=== PATIENT | female | born 1985 | race Caucasian/White ===

== ENCOUNTER → 2020-12-26 16:32 | Outpatient (CLI) | payer BC, SELFPAY ==
[2020-12-26 17:22] LABS: Hematocrit 35.6 % (37-47); Hemoglobin 11.8 g/dL (12.0-15.0); Mean Corp Hgb Conc 33.1 g/dL (32-36); Mean Corpuscular Hgb 31.1 pg (27.0-32.0); Mean Corpuscular Volume 93.7 fL (81-99); Mean Platelet Vol. 9.8 fl (6.2-12.0); Platelet Count 225 K/mm3 (150-450); RBC Distribution Width CV 12.6 % (11.6-14.6); RBC Distribution Width SD 43.2 fl (35.1-43.9); White Blood Count 8.1 K/mm3 (4.4-11.0)
[2020-12-26 17:36] LABS: Glucose Challenge Gest 1H 50g 117 mg/dL (70-140)
== END ==
PROVIDERS: Visit Provider Obstetrics & Gynecology
DX: Z34.83 Encounter for supervision of other normal pregnancy, third trimester (principal)
CPT/HCPCS: 82950; 85027

== ENCOUNTER → 2021-02-23 17:55 | Outpatient (CLI) | payer BC, SELFPAY | PROVIDERS: Referring Provider Obstetrics & Gynecology; Visit Provider Obstetrics & Gynecology | DX: Z36.85 Encounter for antenatal screening for Streptococcus B (principal) | CPT/HCPCS: 87081 ==

== ENCOUNTER 2021-03-09 00:10 | Inpatient (IN) | payer BC, SELFPAY ==
[2021-03-09] VITALS (89 sets, daily range): BP systolic 98–147; BP diastolic 48–93; PULSE 57–168; RESP 16; TEMP 36.2–36.8; O2SAT 82–100; BMI 31.6
--- NOTE | 2021-03-09 00:14 | PCM.HP.BLA ---
History and Physical Date of Admission: 03/09/21 OG ANTEPARTUM RECORD - HISTORY AND PHYSICAL (03/09/2021) Name: MONSERRAT SHUKLA History of this : This is a 35 year old [id number] presents at 38 wks + 5 days gestation in active labor. OB Physician: DARBY THOMSON MD 's Physician: UNDECIDED ...................................................................... : 1985 Age: 35 Address: [address] [place] [address] [address] [place] [id number] Phone: H) [phone] ([phone] Insurance Carrier: [employer] [id number] Emergency Contact: MARCUS BARRETT [phone] ...................................................................... Final MANNY: 03/18/21 By Ultrasound: PARITY: (G-Total Pregnancies P-Fullterm,Premature,Induced AB,Spont AB, Ectopics, Multiple,Living) MANNY CONFIRMATION: By LMP: 06/11/20 Final MANNY: 03/18/21 OB PROBLEM LIST: First del at [facility]. Lots of questions. Enc office classes. 2 vessel cord for repeat growth u/s at 36wks AMA Echogenic cardiac foci NIPT negative EPDS- 4 Hx of Anxiety- on Lexapro ALLERGIES: No Known Drug Allergies MEDICATIONS: aspirin 81 mg tablet,delayed release 1 PO QD Lexapro 10 mg tablet 1 daily + DHA 28 mg iron- 975 mcg-200 mg combo pack daily promethazine 12.5 mg tablet 1 PO every four to six hours PRN for Nausea SOCIAL HISTORY: Smoking - Smoker since age 18y. Quit Jun 2020. Alcohol Use - socially not while Diet - moderate, balanced diet Lifestyle - low stress lifestyle Exercise - Was lifting weights. Occ walking. Now none. Has treadmill. Employer - [employer] Job Description - Illicit Drug Use - denies use of street drugs Sexual Activity - Residence - Just bought their first house. Place of - [place] Spouse-Sig Other Name - Marcus Spouse-Sig Other Occupation - [employer] Spouse-Sig Other Phone No - [phone] Children Name(s) - Sandra PRIOR DELIVERY HISTORY DEL DATE GEST LAB WT LB WT OZ TYPE ANES LABOR TX 05 Jul 07 39 [phone] 7 12 Vag Epidural No ANTEPARTUM FLOW CHART VISIT RTC FU F F FL U U DATE WK MD WKS HT PN HR M SS BP ED WT FL GL D EF ST __ ____ ___ __ __ ___ __ __ __ ___ __ __ __ ___ __ Feb JM 1 37 V + + 106/78 0 181 - - 2 50 -3 03 Feb 36 JM 1 36 V + + 114/80 0 177 tr ne January JMW 1 35 + + 140/76 0 174 tr - 06 January 32 JM 2 32 - on + 114/64 0 171 ne ne Jan 20 JM 2 30 - + + 100/62 0 169 tr - 05 Jan 18 JM 2 28 - + + 118/66 sl 164 tr - 08 Dec 14 JM 4 24 - on + 126/78 0 158 08 Nov 12 JM 4 20 - on + 124/80 0 151 tr ne Oct 07 JM 4 15 - + O 112/76 0 146 - - 10 Sep 02 JM 4 11 - on 124/80 0 138 tr - ANTEPARTUM NOTE(S): Mar 03 2021: pelvic pressure, back pain, ctx's occasionally Feb 23 2021: LARC declined, GBS today Feb 09 2021: No PIH sxs. Start weekly NSTs Jan 26 2021: Jan 12 2021: doing well Dec 26 2020: see note Nov 28 2020: glucola given Oct 31 2020: US today Sep 26 2020: nausea, red/ itchy rash Sep 01 2020: feeling well COMPREHENSIVE ANTEPARTUM NOTE(S): Mar 03 2021: Monserrat is here for a PNV. good FM. No edema present at this time. Ctx's occasionally. Pelvic pressure and back pain, managing w/ maternity belt. Would like cervix checked. MK Mar 03 2021: 37wk, GBS neg. Membrane sweep today. Declined IOL at 39wks with her risk factors r/b/a discussed. Desires 40wk IOL. Mar 02 2021: H taken to OB. tkg Feb 23 2021: Monserrat is here for PNV following US. Having good FM. No edema noted today. States she is uncomfortable. LARC form declined and signed. May consider at PP visit. GBS today. Urine tr/neg. LSS Feb 23 2021: 36wk, 2 vessel cord growth u/s AGA BPP 02/28 no breathing, NST reactive 05/02. Reassuring. GBS collected today. Feb 09 2021: Monserrat is here for PNV. Having an episode of increase nausea just today. States she is dehydrated and lightheaded. BP elevated 140/76. Lying on left retake 108/60. Is sipping on water and drinking al tolerated. No edema presently. Having good FM. LSS Jan 26 2021: Monserrat is here for PNV following US. Feeling well with good FM. Wishes to have tdap and going after apt today to get this done. No problems with swelling. No complaints or concerns. Urine neg/neg. LSS Jan 26 2021: 32wk, growth u/s today for 2VC and AMA. Overal AGA, EFW 81%. Will repeat growth u/s in 4 weeks, pt anxious. Jan 12 2021: Monserrat is here for visit. She is doing well, no complaints or concerns. Reviewed FM, PTL, and encouraged Tdap. LMT Jan 12 2021: 30wk, for growth u/s next visit for 2VC and cardiac foci. Dec 26 2020: Monserrat is here for visit. She is doing well except for having issues with reflux at night. She has not yet associated with anything that she does. Maybe larger meals? Reviewed small, frequent meals, upright after eating, limit fried or spicy foods. May use OTC TUMS, Mylanta, Pepcid. Tdap encouraged. Reviewed FM. GCT, CBC drawn today. LMT Dec 26 2020: 28wk, 1hr GTT today. 2VC and echogenic cardiac foci. For growth u/s at 32wks, ordered. Nov 28 2020: Glucola given with instructions. She is feeling well overall. Encouraged Tdap. She does report that had bleeding last night after IC. It resolve immediately afterward and no further bleeding today. U/S did not show a bleed. Will call if this happens again. Encouraged her to use lubricant next time to see if this helps. LMT Nov 28 2020: 24wk, NIPT negative. 2 VC, growth U/s AGA. Cardiac foci was noted, no changes. Educated on MFM echo r/b/a, pt declines. Will start growth u/s at 30-32wks. For 1hr GTT next visit. Oct 31 2020: Monserrat is here for PNV following US. States she feels really well. Eating and taking fluids without difficulty. Having good FM. No edema noted. Urine dipped tr and neg. No complaints. LSS Oct 31 2020: 20wk, anatomy u/s today with 2VC and echogenic cardiac foci. Discussed soft markers, offered NIPT and MFM u/s. R/b/a given, pt elects for NIPT but desires repeat u/s here in erin. Reasonable. For u/s next visit . Will get growth u/s at 32wks. Did not give 1hr GTT, will give next visit. SCOTTY Sep 26 2020: Monserrat is here for a PNV. Continues to have mild nausea, wonders if she can have another refill of Promethazine. Denies vomiting, cramping and spotting. Sl fatigue. Complains of red, itchy rash on abdomen, arm and neck. GEMA Sep 26 2020: 15wk, had rash on abdomen that spread to extremities. Itched, but now improved with patch spots of rash. No clear dx, pt instructed. 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 Her , Marcus is a microsystems engineer/IT. They are pleased about the pg. Their 5 yo daughter really wanted a sibling. Sandra was born in [place] after a lengthy prodromal phase in [place] with a strong epidural. She prefers to not have Sep 01 2020: 11wk, u/s today FINAL MANNY: 03/18/21 by LMP c/w 11wk u/s. PNP wnl. Pt switching insurances. SCOTTY Aug 23 2020: Monserrat is here for missed menses appt. She relates LMP of 06/11, +UPT today in office, EDC 03/18/21. She has mild nausea and occ emesis. Some days are better than others. She took Zofran with her last and does not want to take this again because of complications she has read about this medication. She is only wanting medication without side effects. Advised that is not really an opti REVIEW OF SYSTEMS: GENERAL - Denies fever, or chills SKIN - Denies rash, new skin lesions, or change in moles EYES - Denies blurred vision, or change in visual acuity EARS - Denies ear pain, or difficulty hearing NOSE - Denies nasal congestion, discharge, or bleeding MOUTH - Denies sore throat, or difficulty swallowing NECK - Denies pain or swelling RESPIRATORY - Denies shortness of breath, cough, wheezing CARDIOVASCULAR - Denies palpitations, chest pain, orthopnea, PND, peripheral edema, syncope or claudication GASTROINTESTINAL - Denies nausea, vomiting, diarrhea, constipation, Denies abdominal pain, melena and or bright red blood GENITOURINARY - Denies dysuria, frequency of urination, urgency, or hesitancy MUSCULOSKELETAL - Denies joint or muscle pain, or back pain NEUROLOGICAL - Denies localized numbness, weakness, or tingling PSYCHIATRIC - Denies depression, anxiety, substance abuse or suicide attempts ENDOCRINE - Denies heat or cold intolerance, weight loss or gain, increasing thirst HEMATO-IMMUNOLOGIC - Denies easy bruising, bleeding, oral ulcerations or recurrent infections GENETICS SCREENING: Age 35+ years: Yes Thalassemia: No Neural Tube Defect: No Down Syndrome: No JOSE M-SACHS: No Sickle Cell Disease: No Hemophilia: No Musc. Dystrophy: No Cystic Fibrosis: No-declines screening Russell Chorea: No Mental Retardation: No Fragile X: No Other genetic: No Other defects: No SABs/still births: No Drugs since LMP: Yes INFECTION HISTORY: High risk AIDS: No High risk Hepatitis: No Exposed to TB: No Exposed to Herpes: No Rash/viral illness since LMP: No History of STD: No MENSTRUAL HISTORY: *Menses Amount/Duration: 5 to 7 daysMenses Regularity: RegularMenarche (Age Onset): 13* PAST SUMMARY: PARITY: 1. Total Pregnancies............ 2 2. Full Term Pregnancies........ 1 3. Premature.................... 0 4. Abortions - Induced.......... 0 5. Abortions - Spontaneous...... 0 6. Ectopics..................... 0 7. Multiple Births.............. 0 8. Living Children.............. 1 PAST #1: Date of :.................. 06/27/15 Gestation Weeks:................ 39 Length of labor(hours):......... 6 Sex:............................ F Weight-lbs:............... 7 Weight-oz:................ 12 Type of Delivery:............... Vag Type of Anesthesia:............. Epidural Place of Delivery:.............. [facility] Treatment of Labor?:.... No Comment: NO PHYSICAL EXAMINATION General Appearence: 35 yo female in no acute distress Vital Signs: AF, VSS Heart: RRR without rubs or gallops Lungs: CTA x 2 Breasts: deferred Abdomen: gravid Pelvis: Cervix: 4/80 BBOW Presentation: cephalic Station: -2 Fetus: Size: AGA Movement: present Heart: present LAB TEST(S) ORDERED SINCE:06/21/20 08/25/2020 URINE CULTURE, ROUTINE 08/25/2020 MICROSCOPIC EXAMINATION 08/25/2020 IGP, APTIMA HPV, RFX 16/18,45 08/25/2020 CHLAMYDIA/GC AMPLIFICATION 08/25/2020 CBC/D/PLT+RPR+UA+RH+ABO+RUB... 02/26/2021 RULE OUT BETA STREP (GRP. B) 12/26/2020 GLUCOSE CHALLENGE GEST 1H 50G 12/26/2020 CBC-COMPLETE BLOOD CNT NO DIFF == ==== Order Observation Description Value Ref_Range A* Site == ==== RULE OUT BETA S NOTE SÁNCHEZ GLUCOSE CHALLEN NOTE S[facility] GLUCOSE CHALLEN GLU GEST 50G 1H 117 mg/dL 70-140 ML CBC-COMPLETE BL NOTE S[place] CBC-COMPLETE BL WBC 8.1 K/mm3 4.4-11.0 ML CBC-COMPLETE BL RBC 3.80 M/mm3 4.2-5.4 L ML CBC-COMPLETE BL HGB 11.8 g/dL 12.0-15.0 L ML CBC-COMPLETE BL HCT 35.6 37-47 L ML CBC-COMPLETE BL MCV 93.7 fL 81-99 ML CBC-COMPLETE BL MCH 31.1 pg 27.0-32.0 ML CBC-COMPLETE BL MCHC 33.1 g/dL 32-36 ML CBC-COMPLETE BL RDW CV 12.6 11.6-14.6 ML CBC-COMPLETE BL RDW SD 43.2 fl 35.1-43.9 ML CBC-COMPLETE BL PLT 225 K/mm3 150-450 ML CBC-COMPLETE BL MPV 9.8 fl 6.2-12.0 ML CBC/D/PLT+RPR+U TSH 1.210 uIU/mL 0.450-4.500 LC_CB CBC/D/PLT+RPR+U HBSAG SCREEN Negative Negative LC_CB CBC/D/PLT+RPR+U RPR Non Reactive Non Reactive LC_CB CBC/D/PLT+RPR+U RUBELLA ANTIBODIES, IGG 1.18 index Immune >0.99 LC_CB Non-immune <0.90 Equivocal 0.90 - 0.99 Immune >0.99 CBC/D/PLT+RPR+U ABO GROUPING O LC_CB CBC/D/PLT+RPR+U RH FACTOR Positive LC_CB Please note: Prior records for this patient's ABO / Rh type are not available for additional verification. CBC/D/PLT+RPR+U ANTIBODY SCREEN Negative Negative LC_CB CBC/D/PLT+RPR+U HIV SCREEN 4TH GENERATIO Non Reactive Non Reactive LC_CB CBC/D/PLT+RPR+U WBC 10.4 x10E3/uL 3.4-10.8 LC_CB CBC/D/PLT+RPR+U RBC 4.80 x10E6/uL 3.77-5.28 LC_CB CBC/D/PLT+RPR+U HEMOGLOBIN 14.3 g/dL 11.1-15.9 LC_CB CBC/D/PLT+RPR+U HEMATOCRIT 42.7 % 34.0-46.6 LC_CB CBC/D/PLT+RPR+U MCV 89 fL 79-97 LC_CB CBC/D/PLT+RPR+U MCH 29.8 pg 26.6-33.0 LC_CB CBC/D/PLT+RPR+U MCHC 33.5 g/dL 31.5-35.7 LC_CB CBC/D/PLT+RPR+U RDW 11.6 % 11.7-15.4 L LC_CB CBC/D/PLT+RPR+U PLATELETS 263 x10E3/uL 150-450 LC_CB CBC/D/PLT+RPR+U NEUTROPHILS 79 % Not Estab. LC_CB CBC/D/PLT+RPR+U LYMPHS 16 % Not Estab. LC_CB CBC/D/PLT+RPR+U MONOCYTES 3 % Not Estab. LC_CB CBC/D/PLT+RPR+U EOS 1 % Not Estab. LC_CB CBC/D/PLT+RPR+U BASOS 0 % Not Estab. LC_CB CBC/D/PLT+RPR+U IMMATURE CELLS LC_CB CBC/D/PLT+RPR+U NEUTROPHILS (ABSOLUTE) 8.2 x10E3/uL 1.4-7.0 H LC_CB CBC/D/PLT+RPR+U LYMPHS (ABSOLUTE) 1.7 x10E3/uL 0.7-3.1 LC_CB CBC/D/PLT+RPR+U MONOCYTES(ABSOLUTE) 0.3 x10E3/uL 0.1-0.9 LC_CB CBC/D/PLT+RPR+U EOS (ABSOLUTE) 0.1 x10E3/uL 0.0-0.4 LC_CB CBC/D/PLT+RPR+U BASO (ABSOLUTE) 0.0 x10E3/uL 0.0-0.2 LC_CB CBC/D/PLT+RPR+U IMMATURE GRANULOCYTES 1 % Not Estab. LC_CB CBC/D/PLT+RPR+U IMMATURE GRANS (ABS) 0.1 x10E3/uL 0.0-0.1 LC_CB CBC/D/PLT+RPR+U NRBC LC_CB CBC/D/PLT+RPR+U HEMATOLOGY COMMENTS: LC_CB CBC/D/PLT+RPR+U SPECIFIC GRAVITY 1.015 1.005-1.030 LC_CB CBC/D/PLT+RPR+U PH 6.5 5.0-7.5 LC_CB CBC/D/PLT+RPR+U URINE-COLOR Yellow Yellow LC_CB CBC/D/PLT+RPR+U APPEARANCE Clear Clear LC_CB CBC/D/PLT+RPR+U WBC ESTERASE Trace Negative A LC_CB CBC/D/PLT+RPR+U PROTEIN Negative Negative/Trace LC_CB CBC/D/PLT+RPR+U GLUCOSE Negative Negative LC_CB CBC/D/PLT+RPR+U KETONES Trace Negative A LC_CB CBC/D/PLT+RPR+U OCCULT BLOOD Negative Negative LC_CB CBC/D/PLT+RPR+U BILIRUBIN Negative Negative LC_CB CBC/D/PLT+RPR+U UROBILINOGEN,SEMI-QN 0.2 mg/dL 0.2-1.0 LC_CB CBC/D/PLT+RPR+U NITRITE, URINE Negative Negative LC_CB CBC/D/PLT+RPR+U MICROSCOPIC EXAMINATION See below: LC_CB Microscopic was indicated and was performed. MICROSCOPIC EXA WBC 0-5 /hpf 0 - 5 LC_CB MICROSCOPIC EXA RBC 0-2 /hpf 0 - 2 LC_CB MICROSCOPIC EXA EPITHELIAL CELLS (NON RE 0-10 /hpf 0 - 10 LC_CB MICROSCOPIC EXA EPITHELIAL CELLS (RENAL) LC_CB MICROSCOPIC EXA CASTS LC_CB MICROSCOPIC EXA CAST TYPE LC_CB MICROSCOPIC EXA CRYSTALS LC_CB MICROSCOPIC EXA CRYSTAL TYPE LC_CB MICROSCOPIC EXA MUCUS THREADS Present Not Estab. LC_CB MICROSCOPIC EXA BACTERIA None seen None seen/Few LC_CB MICROSCOPIC EXA YEAST LC_CB MICROSCOPIC EXA TRICHOMONAS LC_CB URINE CULTURE, URINE CULTURE, ROUTINE Final report LC_CB URINE CULTURE, RESULT 1 No growth LC_CB CHLAMYDIA/GC AM CHLAMYDIA TRACHOMATIS, N Negative Negative LC_=G CHLAMYDIA/GC AM NEISSERIA GONORRHOEAE, N Negative Negative LC_=G IGP, APTIMA HPV DIAGNOSIS: LC_WB NEGATIVE FOR INTRAEPITHELIAL LESION OR MALIGNANCY. IGP, APTIMA HPV SPECIMEN ADEQUACY: LC_WB Satisfactory for evaluation. Endocervical and/or squamous metaplastic cells (endocervical component) are present. IGP, APTIMA HPV PERFORMED BY: LC_WB Radha Dorman Dance Master (ASCP) IGP, APTIMA HPV . . LC_WB IGP, APTIMA HPV NOTE: LC_WB The Pap smear is a screening test designed to aid in the detection of premalignant and malignant conditions of the uterine cervix. It is not a diagnostic procedure and should not be used as the sole means of detecting cervical cancer. Both false-positive and false-negative reports do occur. . IGP, APTIMA HPV TEST METHODOLOGY: LC_WB This liquid based ThinPrep(R) pap test was screened with the use of an image guided system. IGP, APTIMA HPV HPV APTIMA Negative Negative LC_WB This nucleic acid amplification test detects fourteen high-risk HPV types (16,18,31,33,35,39,45,51,52,56,58,59,66,68) without differentiation. Source.............Vagina;Vulva Dates / Results....LMP 06/11 Other.............. No. of containers..01 ThinPrep Vial No. of containers..01 Aptima Vaginal Swab (Lander Label) Group B Beta Streptococcus is not isolated. == ==== Impression /Plan: 38 wks + 5 days intrauterine in active labor. Preparations in progress for delivery.
[2021-03-09] MEDS: Lactated Ringers 500 ML 999 ML IV ×2 (00:28→02:10)
[2021-03-09 00:35] LABS: Absolute Neutrophil Count 9.5 X10^3/uL (2.0-7.7); Basophil# 0.05 X10^3/uL; Basophil% 0.4 % (0-1); Eosinophil# 0.04 X10^3/uL; Eosinophils% 0.3 % (0-5); Hematocrit 39.8 % (37-47); Mean Corp Hgb Conc 32.7 g/dL (32-36); Mean Corpuscular Volume 91.7 fL (81-99); Mean Platelet Vol. 10.2 fl (6.2-12.0); Monocyte# 0.55 X10^3/uL; Monocyte% 4.5 % (0-10); NRBC Flagged by Analyzer 0 % (0-5); Neutrophil # 9.52 X10^3/uL (2.7-7.7); Neutrophil % 77.2 % (47-70); Platelet Count 217 K/mm3 (150-450); RBC Distribution Width CV 12.5 % (11.6-14.6); RBC Distribution Width SD 41.6 fl (35.1-43.9); Red Blood Count 4.34 M/mm3 (4.2-5.4); White Blood Count 12.3 K/mm3 (4.4-11.0)
[2021-03-09] MEDS: Ondansetron 4 MG/2 ML Vial IV (00:54)
[2021-03-09] MEDS: Lactated Ringers 1,000 ML 200 ML IV ×2 (00:59→05:54)
[2021-03-09] MEDS: fentaNYL-bupivacaine (epidural) 100 ML BAG EPIDURAL ×2 (01:43→05:54)
[2021-03-09] MEDS: proCHLORPERazine 10 MG/2 ML Vial IV (02:21)
[2021-03-09] MEDS: Mag Hydrox/Al Hydrox/Simeth 30 ML UDC PO (04:40)
[2021-03-09] MEDS: Oxytocin 30 units/NS 500 ml 30 UNITS/500 ML IV.SOLN 334 UNITS IV (06:44)
[2021-03-09] MEDS: Methylergonovine 0.2 MG/ML Ampul IM ×2 (06:54)
--- NOTE | 2021-03-09 06:57 | OP.PCM_ITS ---
Maternal Data Information Final MANNY: 03/16/21 Final MANNY Source: US <20 weeks Gestational age: 39w0d Vaginal Delivery Maternal Presentation Maternal Presentation: Active Labor Operative Information Date of Procedure: 03/09/21 Pre-Operative Diagnosis: IUP Post-Operative Diagnosis: IUP Surgery / Procedure Performed: Spontaneous Vaginal Delivery Type of Anesthesia: Epidural Estimated Blood Loss: 250 cc Findings Description of Procedure: Spontaneous vaginal delivery of a viable male infant with Apgars of 7/9 from an occiput anterior presentation with clear amniotic fl uid and two-vessel placenta. No episiotomy. Second-degree midline laceration repaired with 3-0 Rapide suture under epidural anesthesia. Sponges okay. Patient had a vasovagal episode about 10 minutes after delivery which resolved with IV fluids and laying flat for about 10 to 15 minutes. Delivery physician: Parveen Quarles MD. Presentation: Vertex Amniotic Membrane Rupture Type: Spontaneous Amniotic Fluid Description: Clear Placental Delivery Description: Spontaneous Placenta Disposition: [facility] Cord Vessel Description: 2 Vessels Cord Entanglement: None Cord Gases: ABG A Gender: Male (1 minute): 7 (5 minute): 9 Post Vaginal Delivery Medications Given After Delivery: IV Pitocin and IM Methergin Episiotomy Description: None Laceration: Midline and 2nd degree Complication Complications: None
[2021-03-09] MEDS: Lactated Ringers 500 ML IV.SOLN. IV (06:59)
--- NOTE | 2021-03-09 07:03 | PCM.DC ---
Documented by User: Dr. Parveen Quarles MD 03/09/21 07:14 Discharge Instructions Diet Discharge Diet: No restrictions Activity Discharge Activity: May Drive (In 1 to 2 days if not taking narcotic pain medication), May Shower and May Take a Tub Bath May resume sexual activity in: 4-6 weeks Additional Activity Instructions:: Nothing in the vagina for 4-6 weeks. You may return to work/school in 6 weeks. Dressing / Incision Call your doctor if you observe: Fever of 101 or Higher, Inability to urinate, Inability to have a bowel movement and Using more than 1 pad per hour Follow Up Care Please Follow Up With: August Chakraborty MD When: Call [phone] to make an appointment with your doctor in 6 weeks. Test Results: Test results from this visit will be discussed in further detail at your follow-up appointment, if applicable. Discharge Plan Admission Admit Date/Time: 03/09/21 00:10 Primary Reason for Your Visit: Vaginal delivery Attending Provider: Parveen Quarles Instructions Patient Instructions: After a Vaginal Discharge Orders/Prescriptions Prescriptions: Continued mhsqcmsz-ogl-Ms-FA 1 mg Tablet PO DAILY RF: 0 escitalopram oxalate [Lexapro] 10 mg Tablet 10 mg PO DAILY RF: 0 Probiotic RF: 0 Discontinued aspirin [Baby Aspirin] 81 mg Tablet,Chewable RF: 0 Disposition Disposition (needs filled in before D/C Order can be placed): Home, self care Documented by User: Dr. Lacey Benitez MD 03/10/21 07:41 Discharge Instructions Dressing / Incision Call your doctor if you observe: Shortness of breath, Chest pain, Calf discomfort and Uncontrolled pain Follow Up Care Please Follow Up With: August Chakraborty MD When: 3 weeks for telehealth 6 weeks for visit Discharge Plan Admission Admit Date/Time: 03/09/21 00:10 Primary Reason for Your Visit: Vaginal delivery Attending Provider: Parveen Quarles Instructions Patient Instructions: After a Vaginal Discharge Orders/Prescriptions Prescriptions: Continued uuribeuj-pua-Ln-FA 1 mg Tablet PO DAILY RF: 0 escitalopram oxalate [Lexapro] 10 mg Tablet 10 mg PO DAILY RF: 0 Probiotic RF: 0 Discontinued aspirin [Baby Aspirin] 81 mg Tablet,Chewable RF: 0 Disposition Disposition (needs filled in before D/C Order can be placed): Home, self care
[2021-03-09] MEDS: 0.9% Saline Lock 10 ML Syringe IV (09:24)
[2021-03-09] MEDS: Ibuprofen 600 MG Tablet PO ×2 (13:14→19:44)
[2021-03-09 13:29] LABS: Hepatitis C Antibody Non-Reactive (Nonreactive)
[2021-03-09] MEDS: Escitalopram Oxalate 10 MG Tablet PO (21:58)
[2021-03-09] MEDS: Senna/Docusate Sodium 1 Tablet PO (21:58)
[2021-03-10] MEDS: Ibuprofen 600 MG Tablet PO ×2 (04:51→11:12)
[2021-03-10 04:53] VITALS: BP 96/57; PULSE 60; RESP 14; TEMP 36.6
[2021-03-10 08:00] VITALS: BP 100/72; PULSE 69; RESP 18; TEMP 36.3; O2SAT 97
--- NOTE | 2021-03-10 08:56 | PCM.PN.OB ---
Subjective Subjective No complaints. Feels well. OOB, ambulating, voiding without difficulty. is nursing well. Denies heavy lochia or significant pain. Requests d/c home today. Objective Data Objective Data Vital Signs: Vital Signs Temp Pulse Resp BP Pulse Ox 97.8 F 60 14 96/57 L 96 03/10/21 04:53 03/10/21 04:53 03/10/21 04:53 03/10/21 04:53 03/09/21 19:41 Oxygen Delivery Method Room Air Weight: 83.461 kg Body Mass Index (BMI) 31.6 Intake & Output: Intake and Output for Last 24 Hours 03/08/21 03/09/21 03/10/21 23:59 23:59 23:59 Intake Total 2980.00 / 2980.00 Output Total 1450 / 1450 Balance 1530.00 / 1530.00 Lab / Micro Data Result Diagrams: 03/09/21 00:20 Labs: Laboratory Results - last 24 hr 03/09/21 11:40 Hepatitis C Antibody Non-Reactive Micro: Microbiology 03/09/21 00:20 Mucosa - Nose SARS-CoV-2 Antigen (Rapid) - Final Physical Exam Const alert, oriented x3 and no apparent distress Resp normal respiratory effort and normal air movement Cardio regular rate, regular rhythm, S1 normal heart sound and S2 normal heart sound Uterus Palpation: uterus fundus firm and other OB fundus nontender Extremity no calf tenderness Neuro oriented x3 Assessment & Plan (1) (spontaneous vaginal delivery): COMMENT: [id number] PPD#1 PLAN: O positive Rubella immune HBsAg neg, RPR nr, HIV neg d/c home today
== END 2021-03-10 11:45 | disposition home or self-care (01) | DRG 806 ==
LOC: WPOUT 00:16 → WP 06:35
PROVIDERS: Admitting Provider Obstetrics & Gynecology; Visit Provider Obstetrics & Gynecology
DX: O70.1 Second degree perineal laceration during delivery (principal); O99.324 Drug use complicating childbirth; Z37.0 Single live birth; R55 Syncope and collapse; F17.200 Nicotine dependence, unspecified, uncomplicated; O99.334 Smoking (tobacco) complicating childbirth; F19.90 Other psychoactive substance use, unspecified, uncomplicated; Z3A.39 39 weeks gestation of pregnancy
CPT/HCPCS: 59025; 59050; 85025; 86803; 86850; 86900; 86901; 87426; 99218; J7120; A4216; G0378; J2405

== ENCOUNTER → 2022-07-09 | Outpatient (CLI) | payer BC, SELFPAY ==
[2022-07-09 16:54] LABS: Absolute Lymphocyte Count 2.29 X10^3/uL (0.83-4.51); Absolute Neutrophil Count 6.8 X10^3/uL (2.0-7.7); Basophil# 0.04 X10^3/uL; Basophil% 0.4 % (0-1); Eosinophil# 0.22 X10^3/uL; Eosinophils% 2.2 % (0-5); Hematocrit 41.8 % (37-47); Hemoglobin 14.2 g/dL (12.0-15.0); Lymphocyte # 2.29 X10^3/ul (0.83-4.51); Lymphocyte % 23.2 % (19-41); Mean Corpuscular Volume 88.4 fL (81-99); Mean Platelet Vol. 9.8 fl (6.2-12.0); Monocyte# 0.51 X10^3/uL; Monocyte% 5.2 % (0-10); NRBC Flagged by Analyzer 0 % (0-5); Neutrophil # 6.76 X10^3/uL (2.7-7.7); Neutrophil % 68.6 % (47-70); Platelet Count 296 K/mm3 (150-450); RBC Distribution Width CV 11.8 % (11.6-14.6); RBC Distribution Width SD 37.7 fl (35.1-43.9); Red Blood Count 4.73 M/mm3 (4.2-5.4); White Blood Count 9.9 K/mm3 (4.4-11.0)
[2022-07-10 08:54] LABS: HIV - WCH Non-Reactive (Nonreactive); Hepatitis B Surface Antigen Non-Reactive (Nonreactive); Hepatitis C Antibody Non-Reactive (Nonreactive); Rubella IgG Reactive (Nonreactive); Syphilis Antibodies Non-reactive
[2022-07-11 08:58] LABS: V-Zoster IgG (Immunity) 1054 index (Immune >165)
[2022-07-12 05:07] LABS: Chlamydia By Nucleic Acid AMP Negative (Negative)
[2022-07-12 17:33] LABS: Gonococcus By Nucleic Acid AMP Negative (Negative)
== END | disposition home or self-care (01) ==
LOC: WOBLAB 15:26
PROVIDERS: Visit Provider Obstetrics & Gynecology
DX: Z34.81 Encounter for supervision of other normal pregnancy, first trimester (principal); Z11.3 Encounter for screening for infections with a predominantly sexual mode of transmission
CPT/HCPCS: 36415; 85025; 86703; 86762; 86780; 86787; 86803; 87086; 87340; 87491; 87591

== ENCOUNTER 2022-08-08 13:09 | Outpatient (CLI) | payer BC, SELFPAY ==
[2022-08-08 13:59] LABS: Glucose Challenge Gest 1H 50g 98 mg/dL (70-140)
== END 2022-08-08 23:59 | disposition home or self-care (01) ==
LOC: LABSPEC 13:12
PROVIDERS: Visit Provider Obstetrics & Gynecology
DX: Z34.82 Encounter for supervision of other normal pregnancy, second trimester (principal); Z3A.00 Weeks of gestation of pregnancy not specified
CPT/HCPCS: 36415; 82950

== ENCOUNTER → 2022-11-21 | Outpatient (CLI) | payer BC, SELFPAY ==
[2022-11-21 16:07] LABS: Glucose Challenge Gest 1H 50g 129 mg/dL (70-140)
[2022-11-21 16:31] LABS: Absolute Lymphocyte Count 1.83 X10^3/uL (0.83-4.51); Absolute Neutrophil Count 6.5 X10^3/uL (2.0-7.7); Basophil# 0.04 X10^3/uL; Basophil% 0.4 % (0-1); Eosinophils% 3.3 % (0-5); Hematocrit 36.6 % (37-47); Hemoglobin 11.7 g/dL (12.0-15.0); Lymphocyte # 1.83 X10^3/ul (0.83-4.51); Lymphocyte % 20.1 % (19-41); Mean Corpuscular Hgb 29.8 pg (27.0-32.0); Mean Corpuscular Volume 93.1 fL (81-99); Mean Platelet Vol. 9.9 fl (6.2-12.0); Monocyte# 0.32 X10^3/uL; Monocyte% 3.5 % (0-10); NRBC Flagged by Analyzer 0 % (0-5); Neutrophil % 71.4 % (47-70); Platelet Count 269 K/mm3 (150-450); RBC Distribution Width CV 12.9 % (11.6-14.6); RBC Distribution Width SD 43.8 fl (35.1-43.9); Red Blood Count 3.93 M/mm3 (4.2-5.4); White Blood Count 9.1 K/mm3 (4.4-11.0)
== END | disposition home or self-care (01) ==
LOC: WOBLAB 13:32
PROVIDERS: Visit Provider Obstetrics & Gynecology
DX: Z34.82 Encounter for supervision of other normal pregnancy, second trimester (principal)
CPT/HCPCS: 36415; 82950; 85025

== ENCOUNTER → 2023-01-08 | Outpatient (CLI) | payer BC, SELFPAY ==
[2023-01-08 14:37] LABS: Absolute Lymphocyte Count 1.66 X10^3/uL (0.83-4.51); Absolute Neutrophil Count 6.7 X10^3/uL (2.0-7.7); Basophil# 0.04 X10^3/uL; Basophil% 0.4 % (0-1); Eosinophils% 3.3 % (0-5); Hematocrit 35.9 % (37-47); Hemoglobin 11.7 g/dL (12.0-15.0); Lymphocyte # 1.66 X10^3/ul (0.83-4.51); Mean Corp Hgb Conc 32.6 g/dL (32-36); Mean Corpuscular Hgb 29.6 pg (27.0-32.0); Mean Corpuscular Volume 90.9 fL (81-99); Monocyte# 0.37 X10^3/uL; NRBC Flagged by Analyzer 0 % (0-5); Neutrophil # 6.72 X10^3/uL (2.7-7.7); Platelet Count 215 K/mm3 (150-450); RBC Distribution Width CV 13.2 % (11.6-14.6); RBC Distribution Width SD 43.6 fl (35.1-43.9); Red Blood Count 3.95 M/mm3 (4.2-5.4); White Blood Count 9.2 K/mm3 (4.4-11.0)
[2023-01-08 15:47] LABS: Syphilis Antibodies Non-reactive
== END | disposition home or self-care (01) ==
LOC: WOBLAB 13:53
PROVIDERS: Visit Provider Obstetrics & Gynecology
DX: Z34.83 Encounter for supervision of other normal pregnancy, third trimester (principal); Z36.85 Encounter for antenatal screening for Streptococcus B
CPT/HCPCS: 36415; 85025; 86780; 87081

== ENCOUNTER 2023-01-31 07:10 | Inpatient (IN) | payer BC, SELFPAY ==
[2023-01-31] VITALS (49 sets, daily range): BP systolic 90–134; BP diastolic 50–82; PULSE 60–90; RESP 16; TEMP 36.3–36.8; O2SAT 97–100; BMI 33.6
[2023-01-31] MEDS: Lactated Ringers 1,000 ML 50 ML IV (07:50)
--- NOTE | 2023-01-31 08:03 | PCM.HP.BLA ---
History and Physical Date of Admission: 01/31/23 Chief complaint: Induction of labor term History present illness: 37-year-old at 39 weeks and 4 days with MANNY 02/03/2023 arrives for induction of labor at term with AMA. Denies headache, vision changes, chest pain, shortness of breath, nausea vomit, right upper quadrant pain. is complicated by AMA, obesity Obstetric history: G1: 40-week female 7 pounds 4 ounces G2: 39-week male 7 pounds 3 ounces G3: Current Past medical history: Anxiety depression Medications: Citalopram, vitamin Past surgical history: None Allergies: No known drug allergies Social history: Former smoker, denies alcohol or drug use Family history: Denies history DVT or PE Review of systems: Besides above pertinent positives a full review of systems was performed and found to be negative Physical exam: Vitals: Blood pressure 114/75 pulse 79 General: Normal-appearing no acute distress HEENT: Normocephalic/atraumatic no cervical lymphadenopathy Cardiac/respiratory: No use of accessory muscles, nonlabored breathing Abdomen: Soft, nontender, gravid Pelvic exam: Cervical exam 3/50/-3. AROM clear fluid Extremities: No peripheral edema normal peripheral pulses Psych: Normal affect and demeanor nonpressured speech Labs: White blood cell count 8.1 hemoglobin 11.6 hematocrit 35.4% platelets 225 Assessment and plan: 37-year-old at 39 weeks and 4 days for induction of labor at term with AMA. Educated patient on options for induction including AROM respites alternatives, patient states understanding wish to proceed with AROM. Admit labor delivery CEFM GBS negative Pitocin induction AROM clear fluid Routine orders
[2023-01-31 08:06] LABS: Absolute Lymphocyte Count 2.27 X10^3/uL (0.83-4.51); Basophil# 0.05 X10^3/uL; Basophil% 0.6 % (0-1); Eosinophil# 0.23 X10^3/uL; Eosinophils% 2.8 % (0-5); Hematocrit 35.4 % (37-47); Hemoglobin 11.6 g/dL (12.0-15.0); Lymphocyte # 2.27 X10^3/ul (0.83-4.51); Mean Corp Hgb Conc 32.8 g/dL (32-36); Mean Corpuscular Hgb 29.6 pg (27.0-32.0); Mean Corpuscular Volume 90.3 fL (81-99); Monocyte# 0.51 X10^3/uL; Monocyte% 6.3 % (0-10); NRBC Flagged by Analyzer 0 % (0-5); Neutrophil # 4.97 X10^3/uL (2.7-7.7); Neutrophil % 61.2 % (47-70); Platelet Count 225 K/mm3 (150-450); RBC Distribution Width CV 13.3 % (11.6-14.6); RBC Distribution Width SD 43.8 fl (35.1-43.9); Red Blood Count 3.92 M/mm3 (4.2-5.4); White Blood Count 8.1 K/mm3 (4.4-11.0)
[2023-01-31] MEDS: Oxytocin 15 Units/NS 250ml 15 UNITS/250 ML IV.SOLN 2 UNITS IV (08:10)
[2023-01-31] MEDS: Ondansetron 4 MG/2 ML Vial IV ×2 (08:16→16:34)
[2023-01-31] MEDS: LACTATED RINGERS 500 ML 999 ML IV (10:10)
[2023-01-31] MEDS: fentaNYL-bupivacaine (epidural) 100 ML BAG EPIDURAL ×2 (10:56→15:24)
[2023-01-31 11:07] LABS: Syphilis Antibodies Non-reactive
--- NOTE | 2023-01-31 14:51 | PCM.PN.OB ---
Subjective Subjective Resting comfortably in bed with epidural, no complaints Objective Data Objective Data Vital Signs: Vital Signs Temp Pulse BP Pulse Ox 97.6 F L 73 90/50 L 100 01/31/23 14:04 01/31/23 14:03 01/31/23 14:03 01/31/23 11:46 Weight: 196 lb Body Mass Index (BMI) 33.6 Intake & Output: Intake and Output for Last 24 Hours 01/29/23 01/30/23 01/31/23 23:59 23:59 23:59 Intake Total 712.97 / 712.97 Balance 712.97 / 712.97 Lab / Micro Data Result Diagrams: 01/31/23 07:50 Labs: Laboratory Results - last 24 hr 01/31/23 07:50: WBC 8.1, RBC 3.92 L, Hgb 11.6 L, Hct 35.4 L, MCV 90.3, MCH 29.6, MCHC 32.8, RDW Std Deviation 43.8, RDW Coeff of Gege 13.3, Plt Count 225, MPV 10.0, Immature Gran % (Auto) 1.100 H, Neut % (Auto) 61.2, Lymph % (Auto) 28.0, [place] % (Auto) 6.3, Eos % (Auto) 2.8, Baso % (Auto) 0.6, Absolute Neuts (auto) 5.0, Absolute Lymphs (auto) 2.27, Nucleated RBC % 0 01/31/23 07:50: Blood Type O POSITIVE, Antibody Screen NEGATIVE 01/31/23 07:50: Syphilis Total Ab Non-reactive Physical Exam Const alert, oriented x3, no apparent distress, average body habitus, healthy appearing and well nourished HEENT normocephalic and moist oral mucous membranes Eyes PERRL Neck full ROM Resp normal respiratory effort, no retractions and no use of accessory muscles Psych mental status grossly normal, affect normal, speech normal and activity/motor behavior normal Assessment & Plan (1) : PLAN: Patient seen and examined. Comfortable with epidural. No complaints. We will continue to titrate Pitocin. Educated patient on plan for induction, all questions answered
[2023-01-31] MEDS: Methylergonovine 0.2 MG/ML Ampul IM (17:00)
--- NOTE | 2023-01-31 17:10 | EX.PCM.OBRPT ---
Vaginal Delivery Findings Description of Procedure: Normal spontaneous vaginal delivery of a viable female infant, vertex AYESHA. Head and shoulders delivered with ease. Cord clamped and cut. Baby handed off to patient. Placenta delivered via cord traction and fundal massage. IV oxytocin initiated per protocol. Prophylactic IM Methergine given with short second stage of labor. Second-degree midline perineal laceration noted and repaired in typical fashion. EBL 400 cc Apgars 7/9
[2023-01-31] MEDS: Oxytocin 15 Units/NS 250ml 15 UNITS/250 ML IV.SOLN 83 UNITS IV (17:28)
[2023-01-31] MEDS: Ibuprofen 600 MG Tablet PO (23:05)
[2023-01-31] MEDS: Escitalopram Oxalate 20 MG Tablet PO (23:05)
[2023-02-01] VITALS (8 sets, daily range): BP systolic 92–114; BP diastolic 55–69; PULSE 51–73; RESP 16; TEMP 36.5–36.6; O2SAT 92–99
[2023-02-01] MEDS: Ibuprofen 600 MG Tablet PO ×2 (06:04→13:00)
--- NOTE | 2023-02-01 08:57 | DCINST_ITS ---
Discharge Instructions Diet Discharge Diet: No restrictions Activity Discharge Activity: Return to Normal Activity, May Drive and May Shower May resume sexual activity in: 4-6 weeks Weight Bearing Status: Weight bearing as tolerated Dressing / Incision Call your doctor if your incision/area has: Continuous Slow Oozing and Foul Smelling Discharge Call your doctor if you observe: Fever of 101 or Higher, Shortness of breath and Chest pain Follow Up Care Please Follow Up With: August Chakraborty MD When: 4 to 6 weeks Test Results: Test results from this visit will be discussed in further detail at your follow- up appointment, if applicable. Discharge Plan Admission Admit Date/Time: 01/31/23 07:10 Attending Provider: August Chakraborty Primary Care Provider: Care Physician,Cherie Primary Discharge Orders/Prescriptions Prescriptions: No Action kqczrjez-ada-Mq-FA 1 mg Tablet 1 tab PO DAILY escitalopram oxalate [Lexapro] 10 mg Tablet 20 mg PO DAILY aspirin 81 mg tablet,delayed release (DR/EC) 81 mg PO DAILY Label Comments: TAKE 1 TABLET BY MOUTH EVERY DAY Referrals / Follow Up: Care Physician,No Primary [Primary Care Provider] - Disposition Discharge Orders: Discharge Patient (Routine); Ordered 02/01/23 Ordered By: Dr. August Chakraborty
--- NOTE | 2023-02-01 08:58 | PCM.PN.OB ---
Subjective Subjective No overnight complaints Objective Data Objective Data Vital Signs: Vital Signs Temp Pulse Resp BP Pulse Ox O2 Del Method 97.8 F 70 16 92/55 L 97 Room Air 02/01/23 04:38 02/01/23 04:38 02/01/23 04:38 02/01/23 04:38 02/01/23 04:38 02/01/23 04:38 Oxygen Delivery Method Room Air Weight: 196 lb Body Mass Index (BMI) 33.6 Intake & Output: Intake and Output for Last 24 Hours 01/30/23 01/31/23 02/01/23 23:59 23:59 23:59 Intake Total 2000.00 / 1999.00 Output Total 1400 / 1400 450 / 450 Balance 600.00 / 600.00 -450 / -450 Lab / Micro Data Result Diagrams: 01/31/23 07:50 Labs: Laboratory Results - last 24 hr 01/31/23 07:50: Blood Type O POSITIVE, Antibody Screen NEGATIVE 01/31/23 07:50: Syphilis Total Ab Non-reactive Physical Exam Const alert, oriented x3, no apparent distress, average body habitus, healthy appearing and well nourished HEENT normocephalic and moist oral mucous membranes Eyes PERRL Neck full ROM Resp normal respiratory effort, no retractions and no use of accessory muscles GI GI Narrative: Soft, nontender, uterus firm and below umbilicus Extremity normal to inspection and full ROM Neuro moves all extremities and no focal motor deficits Psych mental status grossly normal, affect normal, speech normal and activity/motor behavior normal Assessment & Plan (1) Vaginal delivery: PLAN: day 1. Breast-feeding. Pain well controlled. 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
[2023-02-01] MEDS: Acetaminophen 500 MG Tablet 1000 MG PO (10:10)
--- NOTE | 2023-02-01 12:20 | CASEMGMT ---
Social Work Assessment Labor and Delivery Unit Patient Address: [address] [place] [address] [place] [address] Phone number: [phone] Date of Referral: 02/01/23 Time of Referral:? 10:37 Referred By: MD Chakraborty Date of Intervention: 02/01/23? Time of Intervention:? 12:20pm Reason for Referral: hx of anxiety History obtained from: medical records, mother of baby (MOB) and father of baby (FOB) Household composition: MOB reports she and FOB own their home with their [id number]-hyp son and ctd-gshh-uqs daughter. MOB reports this home has adequate space, no housing concerns. Patient's parent/guardian status: MOB reports she has been with ADIS, Marcus, for 11 years and for 4 years. FOB is actively involved with NB and older children and reports no other children. MOB and FOB report no concerns with DV, AOD or MH for FOB. Medical History: MOB was engaged in care with Gina Chakraborty starting around 10 weeks. MOB reports this is her third that resulted in the of their third child, NBIla. Ila was born 01[birth year], weighing 3.225kg, and Apgars 7/9. MOB report NB?s club waiter/waitress will be MD Aly. MOB plans to breast feed and reports no current control plan. Educational Status: MOB reports highest level of education is high school diploma, no learning concerns. ? 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 FOB is employed relay dispatcher at [employer] and will have some time off to also assist with NB. No financial concerns reported. Infant Supplies: MOB reports having all the supplies needed including a car seat, bassinet in their bedroom, clothes and diapers/wipes. Childcare/Caregiver(s): MOB reports she will be home with NB but also has support for childcare from family, friends and neighbors. Transportation: MOB report they have vehicles, no concerns. ?? Programs/Agencies Involved: ??MOB reports no community resources and declined referrals. Children Services/Legal Issues: None reported??? Behavioral Health Issues: ??Mental Health History:? MOB reports history of anxiety and was prescribed Lexapro. MOB explained she continued Lexapro during her and plans to continue. ANNY is prescribed Lexapro from [id number] but is not active with a therapist. No AOD concerns but reports being a former smoker with a plan to refrain from use. Family/Social Stressors:? No stressors identified. Support Systems: MOB reports she is supported by FOB, her family as well as some friends and neighbors. ? Depression/Shaken Baby/Safe Sleeping: KRISTINA educated MOB on depression/anxiety as well as shaken baby and safe sleep. MOB report NB will be sleeping in a basinet beside their bed but has a crib in her nursey to transition to when she is older. SW provided MOB with educational information as well as resources on the topics. MOB report understanding and voice no other needs. SW encouraged MOB to contact OB or PCP if she is concerned with symptoms. ??? ASSESSMENT:? SW met with MOB and introduced herself and role as [facility] Coiler Operator. MOB in agreement to speak with SW with FOB present. SW utilized open and close ended questions to gather information needed for an assessment. MOB report having supplies needed, identified supports and reports no current community resources and declined referrals. MOB reports history of anxiety and was prescribed Lexapro by [place] [id number] that she continued during the . MOB reports she is receiving adequate support from [place] [id number] and plans to continue services with them. SW educated MOB on safe sleep, shaken baby and PPD/A. KRISTINA also provided local resources for [facility]. KRISTINA educated MOB and FOB on secondhand smoke and discussed a safe plan for NB if MOB resumes smoking. MOB agrees for NB to be under the care of a sober and trusted weekend caregiver, MOB will wash her hands and change her clothes to decrease exposure to secondhand smoke. MOB explained she does not plan to resume smoking at this time. KRISTINA updated RN of resources provided, no concerns. PLAN:? No needs indicated. Ysabel Cobb MSW, FRAN
[2023-02-01] MEDS: Senna/Docusate Sodium 1 Tablet PO (13:00)
[2023-02-01] MEDS: Prenatal Vits Tablet 1 TABLET PO (13:00)
== END 2023-02-01 17:45 | disposition home or self-care (01) | DRG 807 ==
PROVIDERS: Admitting Provider Obstetrics & Gynecology; Referring Provider Obstetrics & Gynecology; Visit Provider Obstetrics & Gynecology
DX: O99.214 Obesity complicating childbirth (principal); Z37.0 Single live birth; O99.344 Other mental disorders complicating childbirth; F32.A Depression, unspecified; F41.9 Anxiety disorder, unspecified; Z3A.39 39 weeks gestation of pregnancy; O70.1 Second degree perineal laceration during delivery; Z79.82 Long term (current) use of aspirin; Z79.899 Other long term (current) drug therapy; Z87.891 Personal history of nicotine dependence
CPT/HCPCS: 59025; 59050; 85025; 86780; 86850; 86900; 86901; 99221; J7120; G0378; J2405